=== PATIENT | male | born 1970 | race Caucasian/White ===

== ENCOUNTER 2018-02-21 17:42 | Emergency (ER) | payer OTHER ==
--- NOTE | 2018-02-21 19:04 | ED ---
General Adult HPI - General Chief complaint: Skin/Abscess/Foreign Body Stated complaint: MULTIPLE TICK BITES Time Seen by Provider: 02/21/18 17:53 Source: patient, RN notes reviewed Mode of arrival: ambulatory Limitations: no limitations - History of Present Illness Initial comments: 48-year-old male presents to the emergency department for chief complaint of rash. Patient states it is possibly due to tics. Patient states he had multiple black dots on his arms and chest since yesterday. Patient states he was camping in [place] when he noticed them. Patient states he tried to pick them off but could not. Patient states because he had the black dots he bleached them today. Patient states he thinks the black dots on his skin are ticks. Since he bleached them he has caused patches of redness. Patient denies having redness around the dots before he bleached them. Patient denies any fevers, joint pain, headache, nausea vomiting, or abdominal pain. No visual changes. No neck pain. Patient has no other complaints at this time including shortness of breath, chest pain, abdominal pain, nausea or vomiting, headache, or visual changes. - Related Data Previous Rx's Medication Instructions Recorded diphenhydrAMINE [Benadryl] 50 mg PO QID PRN #20 capsule 02/21/18 Allergies Allergy/AdvReac Type Severity Reaction Status Date / Time No Known Allergies Allergy Verified 02/21/18 18:01 Review of Systems ROS Statement: Those systems with pertinent positive or pertinent negative responses have been documented in the HPI. ROS Other: All systems not noted in ROS Statement are negative. Past Medical History Past Medical History: Cancer, Hyperlipidemia, Musculoskeletal Disorder, Neurologic Disorder Additional Past Medical History / Comment(s): MIGRAINES OFF & ON, BASAL CELL SKIN CA REMOVED IN OFFICE ON BACK, CARPAL TUNNEL PINKY. WRISTS History of Any Multi-Drug Resistant Organisms: MRSA Date of last positivie culture/infection: 06/22/16 MDRO Source:: BACK Past Surgical History: Orthopedic Surgery Additional Past Surgical History / Comment(s): GANGLION CYST REMOVED RT WRIST Past Anesthesia/Blood Transfusion Reactions: Postoperative Nausea & Vomiting ( PONV) Past Psychological History: No Psychological Hx Reported Smoking Status: Never smoker Past Alcohol Use History: Occasional Past Drug Use History: Marijuana - Past Family History Mother Family Medical History: Cancer, Hypertension Additional Family Medical History / Comment(s): HX SKIN & BREAST CA Father History Unknown: Yes Sister(s) Family Medical History: Cancer Additional Family Medical History / Comment(s): COLON CA Brother(s) Additional Family Medical History / Comment(s): HX POLYPS IN COLON General Exam Limitations: no limitations General appearance: alert, in no apparent distress Head exam: Present: atraumatic, normocephalic, normal inspection Eye exam: Present: normal appearance, PERRL, EOMI. Absent: scleral icterus, conjunctival injection, periorbital swelling ENT exam: Present: normal exam, normal oropharynx (non erythematous. No tonsillar exudates noted bilaterally. Uvula midline.), mucous membranes moist, TM's normal bilaterally, normal external ear exam Neck exam: Present: normal inspection, full ROM. Absent: tenderness, meningismus, lymphadenopathy (No cervical lymphadenopathy palpated) Respiratory exam: Present: normal lung sounds bilaterally. Absent: respiratory distress, wheezes, rales, rhonchi, stridor Cardiovascular Exam: Present: regular rate, normal rhythm, normal heart sounds. Absent: systolic murmur, diastolic murmur, rubs, gallop, clicks Skin exam: Present: rash (Patient has erythematous plaques noted on bilateral arms and chest. Patient also has plaques noted on lateral back. In the middle of the erythematous lesions are black dots that are consistent with the rest of the patient's freckles. Black dots are not raised and appear to be macules. No sign of tick burrowing. No erythema migrans. There are about 50 erythematous lesions on patient's torso and arms.) Course Vital Signs 02/21/18 17:50 Temperature 98.5 F Pulse Rate 105 H Respiratory 18 Rate Blood Pressure 144/110 O2 Sat by Pulse 98 Oximetry Medical Decision Making - Medical Decision Making 48-year-old male presents to the emergency department for a chief complaint of rash 2 days. Patient states he noticed black dots on his arms and chest yesterday while camping in [place]. Patient was concerned for ticks. Today patient bleached all the black dots to pull the possible ticks out of his skin. Patient denies any other symptoms at this time. On exam there are about 50 erythematous lesions about 1 cm x 1 cm in diameter over patient's bilateral arms and chest. There are also some lesions on the lateral back that the patient could reach with his arms. With in the center of the red lesions are black dots that appear to be macules. They are consistent with patient's freckles. The lesions are not raised. No sign of ticks or burrowed ticks. I pointed to a freckle and asked if the black dot looked like that and patient said "yes that is one of them." Patient denies pruritus of the lesions. Patient states they were not red until he bleached them. Patient admits to causing the redness from the bleach. No erythema migrans. [facility] recommends against tick bite prophylaxis at this time according to recommendations. Patient will be given Benadryl at this time for a contact dermatitis from the bleach. He is told to come back to the emergency department if he has fevers, headaches, myalgias, or abdominal pain. He can return if he has any other worsening symptoms or signs of skin infection. He will follow up with primary care in 1-2 days or dermatology. Disposition Clinical Impression: Contact dermatitis Disposition: HOME SELF-CARE Condition: Good Instructions: Contact Dermatitis (ED) Additional Instructions: Please take Benadryl as directed. Please monitor for any signs of infection such as spreading redness or streaking redness and return if these occur. Return if you develop fevers as well. Follow up with primary care or dermatology in 1-2 days. Prescriptions: diphenhydrAMINE [Benadryl] 50 mg PO QID PRN #20 capsule PRN Reason: Rash Is patient prescribed a controlled substance at d/c from ED?: No Referrals: Julius Nesbitt MD [STAFF PHYSICIAN] - 1-2 days Keyana Stevenson MD [STAFF PHYSICIAN] - 1-2 days Time of Disposition: 19:00
[2018-02-21 19:09] VITALS: BP 130/69; PULSE 79; RESP 16; TEMP 97.8
== END 2018-02-21 19:08 | disposition home or self-care (01) ==
LOC: EC 17:42
DX: L25.9 Unspecified contact dermatitis, unspecified cause (principal); Z85.828 Personal history of other malignant neoplasm of skin; Z98.890 Other specified postprocedural states
CPT/HCPCS: 99282

== ENCOUNTER 2023-03-13 15:19 | Emergency (ER) | payer BC, OTHER ==
[2023-03-13 15:47] VITALS: TEMP 98.6
[2023-03-13] MEDS ORDERED: SODIUM CHLORIDE 0.9% 1,000 ML IV ONE (16:07)
[2023-03-13 16:32] LABS: Basophils % (A) 0 %; Eosinophils # (A) 0.2 k/uL (0-0.7); Eosinophils % (A) 1 %; HCT 44.9 % (39.0-53.0); Lymphocytes # (A) 1.2 k/uL (1.0-4.8); Lymphocytes % (A) 10 %; MCH 30.1 pg (25.0-35.0); MCHC 33.5 g/dL (31.0-37.0); MCV 89.9 fL (80.0-100.0); Mean Platelet Volume 8.1; Monocytes # (A) 0.5 k/uL (0-1.0); Monocytes % (A) 4 %; Neutrophils # (A) 9.7 k/uL (1.3-7.7); Neutrophils % (A) 84 %; Platelet Count 202 k/uL (150-450); RBC 4.99 m/uL (4.30-5.90); RDW 12.8 % (11.5-15.5); WBC 11.6 k/uL (3.8-10.6)
--- NOTE | 2023-03-13 16:48 | XR ---
EXAMINATION TYPE: XR chest 2V DATE OF EXAM: 03/13/2023 COMPARISON: None HISTORY: 53-year-old male with chest pain TECHNIQUE: PA and lateral views FINDINGS: The cardiomediastinal silhouette, aorta, and pulmonary vasculature are within normal limits. Lungs an d pleural spaces are clear. IMPRESSION: No acute cardiopulmonary process.
[2023-03-13 16:57] LABS: Sodium 134 mmol/L (137-145)
[2023-03-13 16:58] LABS: ALT 25 U/L (4-49); AST 28 U/L (17-59); African American GFR (CKD) 74 (>60 ml/min/1.73 sqM); Alkaline Phosphatase 70 U/L (38-126); Anion Gap 9 mmol/L; Blood Urea Nitrogen 24 mg/dL (9-20); Calcium 8.8 mg/dL (8.4-10.2); Carbon Dioxide 21 mmol/L (22-30); Chloride 104 mmol/L (98-107); Creatine Kinase 89 U/L (55-170); Glucose 118 mg/dL (74-99); Lipase 192 U/L (23-300); Magnesium 1.9 mg/dL (1.6-2.3); Non-African American GFR(CKD) 64 (>60 ml/min/1.73 sqM); Potassium 3.8 mmol/L (3.5-5.1); Total Bilirubin 0.9 mg/dL (0.2-1.3); Total Protein 6.8 g/dL (6.3-8.2)
[2023-03-13 17:13] VITALS: RESP 18
[2023-03-13] MEDS ORDERED: LABETALOL 5 MG/ML VIAL MDV IVP STA (17:22)
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
[2023-03-13 18:05] VITALS: BP 173/118; PULSE 75
== END 2023-03-13 18:52 | disposition home or self-care (01) ==
LOC: EC 15:19
DX: I10 Essential (primary) hypertension (principal); F12.90 Cannabis use, unspecified, uncomplicated
CPT/HCPCS: 36415; 71046; 80053; 82550; 83690; 83735; 84484; 85025; 93005; 96361; 96374; 99284